=== PATIENT | male | born 1990 | race African-American/Black ===

== ENCOUNTER 2017-06-12 11:17 | Emergency (ER) | payer BC ==
[~2017-06-12] VITALS: Ht 193 cm; Wt 86.2 kg
--- NOTE | 2017-06-12 11:40 | Emergency Room Report ---
History of Present Illness General Chief Complaint: Back Pain-No Injury Source: Patient Present Illness HPI Patient is a 26-year-old male who presented after increased low back pain. Patient had acute onset of low back spasms. He denies any recent trauma. He states his been sitting more frequently. He denies any chest or lower extremity pain. He denies any numbness or weakness. Patient had not been having any pain to his legs. He denies any dysuria. Allergies: Coded Allergies: No Known Allergies (Unverified , 06/12/17) Patient History Past Medical History: see triage record Reviewed Nursing Documentation: PMH: Agreed; PSxH: Agreed Nursing Documentation-PMH Past Medical History: No Stated History Review of Systems All Other Systems: negative except mentioned in HPI Physical Exam Vital Signs Date Time Temp Pulse Resp B/P (MAP) Pulse Ox O2 Delivery O2 Flow Rate FiO2 06/12/17 11:13 97.6 74 20 119/78 100 Room Air 97.5 General Appearance: well appearing, no apparent distress, alert, GCS 15 Head: normocephalic, atraumatic ENT: hearing grossly normal, normal voice Neck: full range of motion, supple Respiratory: no respiratory distress, speaking full sentences Cardiovascular #1: normal inspection, regular rate, rhythm Gastrointestinal: normal inspection, normal bowel sounds, non tender, soft Musculoskeletal: normal inspection, normal range of motion, no calf tenderness Neurologic: alert, oriented x3, responsive, bass string winder III-XII nml as tested, normal gait Psychiatric: normal inspection, judgement/insight normal, mood/affect normal Skin: no rash Medical Decision Making Diagnostic Impression: Primary Impression: Back spasm ER Course patient presented for back pain.Differential diagnosis included but was not limited to herniated disc, cauda equina syndrome, abdominal aortic aneurysm, perforated ulcer, spinal epidural abscess, spinal stenosis, lumbar fracture, metastatic lesion, pyelonephritis. Patient has a benign exam and does not appear to require any further imaging or laboratory testing at this time. The patient declined muscle relaxants. patient is advised to follow-up for recheck. Last Vital Signs Date Time Temp Pulse Resp B/P (MAP) Pulse Ox O2 Delivery O2 Flow Rate FiO2 06/12/17 11:13 97.6 74 20 119/78 100 Room Air 97.5 Status: improved Disposition: HOME, SELF-CARE Condition: Stable Scripts Ibuprofen* (MOTRIN*) 600 Mg Tablet 600 MG ORAL THREE TIMES A DAY, #30 TAB 0 Refills Prov: Aydin Wheeler 06/12/17 Aydin Wheeler June 12, 2017 11:40
[2017-06-12] MEDS ORDERED: IBUPROFEN600 MG ORAL (11:42)
[2017-06-12] MEDS ORDERED: Ketorolac 60mg Inj IM ONE (11:45)
[2017-06-12 11:46] VITALS: BP 119/78
[2017-06-12 11:55] VITALS: BP 114/82
== END 2017-06-12 11:55 | disposition home or self-care (01) ==
LOC: EDBD 11:17 → EMR 11:37
DX: M62.830 Muscle spasm of back (principal); M54.5 Low back pain
CPT/HCPCS: 99283